=== PATIENT | female | born 2000 | race African-American/Black ===

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

== ENCOUNTER 2020-09-18 12:50 | Emergency (ER) | payer OTHER ==
[~2020-09-18] VITALS: Ht 170.2 cm; Wt 70.3 kg
[~2020-09-18 12:50] MED LIST: PREDNISONE 20 M20 MG PO; PROAIR HFA8.5 GM INH; TESSALON PERLE100 MG PO
[2020-09-18 13:14] LABS: ABSOLUTE NEUTROPHILS 7.9 thou/uL (1.4-8.2); BASOPHILS 0.4 % (0.0-2.0); HEMATOCRIT 37.7 % (37.0-47.0); HEMOGLOBIN 12.3 gm/dL (12.0-15.0); LYMPHOCYTES 14.8 % (24.0-44.0); MCHC 32.7 g/dL (28.0-37.0); MCV 85.8 fL (80.0-100.0); MONOCYTES 4.5 % (1.0-8.0); PLATELET COUNT 274 thou/uL (150-400); POLYS 80.3 % (36.0-66.0); RDW 13.2 % (10.5-14.5); WBC 9.9 thou/uL (4.0-11.0)
[2020-09-18 13:33] LABS: ANION GAP 15 mmol/L (7-16); BUN 9 mg/dL (7-18); CHLORIDE 103 mmol/L (98-107); CO2 23 mmol/L (21-32); CREATININE 1.1 mg/dL (0.6-1.0); GLUCOSE 109 mg/dL (74-106); POTASSIUM 3.1 mmol/L (3.5-5.1); SODIUM 141 mmol/L (136-145)
[2020-09-18 13:40] LABS: ALBUMIN 4.4 g/dL (3.4-5.0); SALICYLATE < 2.8 mg/dL (2.8-20.0); SGOT 22 U/L (15-37); SGPT 20 U/L (14-59); TOTAL BILIRUBIN 0.6 mg/dL (0.2-1.0); TOTAL PROTEIN 8.2 g/dL (6.4-8.2)
[2020-09-18 14:24] LABS: URINE BILIRUBIN NEGATIVE (Negative); URINE BLOOD NEGATIVE (Negative); URINE CLARITY CLEAR; URINE COLOR YELLOW; URINE GLUCOSE-RANDOM* NEGATIVE (Negative); URINE KETONES 1+ (Negative); URINE LEUKOCYTES-REFLEX 3+ (Negative); URINE NITRITE-REFLEX NEGATIVE (Negative); URINE PROTEIN (DIPSTICK) NEGATIVE (Negative); URINE SPECIFIC GRAVITY >= 1.030 (1.005-1.035); URINE UROBILINOGEN 0.2 E.U./dl (0.2-1.0)
[2020-09-18 14:54] LABS: AMP/METHAMP Negative (Negative); BARBITURATES Negative (Negative); BENZODIAZEPINES Negative (Negative); COCAINE Negative (Negative); METHADONE Negative (Negative); OPIATES Negative (Negative); PCP Negative (Negative)
[2020-09-18 15:17] LABS: SQUAMOUS >10 Many /LPF (0-3)
[2020-09-18 15:18] LABS: BACTERIA-REFLEX >30 Many /HPF (None Seen); CRYSTALS None Seen /LPF (None Seen); URINE WBC-REFLEX >25 Many /HPF (0-5)
[2020-09-18 15:19] LABS: CASTS None Seen /LPF (None Seen); MUCUS >6 Heavy strn/LPF (None Seen); URINE RBC 0-2 Rare /HPF (0-2)
--- NOTE | 2020-09-18 15:27 | EKG ---
[address] [address] ELECTROCARDIOGRAM REPORT Name: JACOB PALENCIA Room #: REG [facility]#: [id number] Admission: 09/18/20 Attend Phys: Discharge: Date of : [birth year] Report #: [id number] [facility] ED Test Date: 2020-09-18 Test Time: 13:04:04 Pat Name: JACOB GRANDA Department: Room: Gender: F Property Management Specialist: LUIGI : 2000 Requested By: Salima Golden Order Number: [id number] MD: Jona Clarke Measurements Intervals Roby Rate: 97 P: 77 GA: 132 QRS: 80 QRSD: 87 T: 41 QT: 337 QTc: 428 Interpretive Statements Sinus rhythm Left atrial enlargement No previous ECG available for comparison Electronically Signed On 09-18-2020 15:27:40 [employer]ILATING EXPERT by Jona Clarke [email or web address] <ELECTRONICALLY SIGNED> By: Jona Clarke MD 09/18/20 1527 1304 1304 Jona Clarke MD /EPI
[2020-09-21 20:31] VITALS: BP 114/80
== END 2020-09-21 20:32 | disposition short-term general hospital (02) ==
LOC: ER 12:50
PROVIDERS: Physician Assistant
DX: F23 Brief psychotic disorder (principal); Z20.822 Contact with and (suspected) exposure to COVID-19; R41.82 Altered mental status, unspecified; F91.9 Conduct disorder, unspecified; E87.6 Hypokalemia; F12.90 Cannabis use, unspecified, uncomplicated; N39.0 Urinary tract infection, site not specified